=== PATIENT | male | born 1995 | race Caucasian/White ===

== ENCOUNTER → 2023-08-02 11:51 | Outpatient (CLI) | payer OTHER, SELFPAY ==
--- NOTE | 2023-08-02 11:53 | DI.RAD.S_ITS ---
PROCEDURE: XR ANKLE RT MIN 3V INDICATIONS: Right ankle strain L I TECHNIQUE: 3 views of the ankle were acquired. COMPARISON: None. FINDINGS: Bones: Displaced avulsion fracture of the lateral process of the talus. Ankle mortise is normally aligned on nonweightbearing view. No suspicious bony lesions. Soft tissues: No tibiotalar joint effusion. Achilles tendon appears normal. Soft tissue swelling in the lateral hindfoot inferior to the lateral malleolus. IMPRESSION: Displaced avulsion fracture of the lateral process of the talus with overlying soft tissue swelling. Correlate for point tenderness. Dictated by: James Stephenson M.D. on 08/02/2023 at 21:36 Approved by: James Stephenson M.D. on 08/02/2023 at 21:38
== END ==
PROVIDERS: Referring Provider Nurse Practitioner Family; Visit Provider Nurse Practitioner Family
DX: S92.141A Displaced dome fracture of right talus, initial encounter for closed fracture (principal); S96.911A Strain of unspecified muscle and tendon at ankle and foot level, right foot, initial encounter; X58.XXXA Exposure to other specified factors, initial encounter
CPT/HCPCS: 73610